=== PATIENT | female | born 1965 | race Caucasian/White ===

== ENCOUNTER → 2020-04-17 | Outpatient (CLI) | payer OTHER ==
[~2020-04-17] MED LIST: CLEOCIN HCL150 MG PO; GLYBURID-METFO1 EAC3 PO; HAIR, SKIN & N1 EAC1 PO; HYDROCODON-ACE1 EAC7 PO; HYDROCODONE-AP1 EAC6 PO; HYDROCODONE-APA1 TA1 PO; IBUPROFEN 200200 M1 PO; IBUPROFEN 600600 M1 PO; LANTUS SOL100 UNIT/1 SUBQ; METFORMIN HCL500 MG PO; SENNA S TABLET1 EACH PO
== END ==
LOC: SJCVCIMAG 08:47
PROVIDERS: ATTEND Internal Medicine
DX: I08.8 Other rheumatic multiple valve diseases (principal)

== ENCOUNTER → 2020-08-20 | Outpatient (CLI) | payer OTHER | LOC: SJCVCIMAG 07:30 | PROVIDERS: ATTEND Internal Medicine | DX: I08.3 Combined rheumatic disorders of mitral, aortic and tricuspid valves (principal); I27.20 Pulmonary hypertension, unspecified; I42.9 Cardiomyopathy, unspecified ==